=== PATIENT | female | born 1975 | race African-American/Black ===

== ENCOUNTER → 2016-10-08 | Outpatient (CLI) | payer BC ==
[~2016-10-08] MED LIST: ABILIFY10 MG PO; AMBIEN PO; AMOXICILLIN PO; ATIVAN PO; BACTRIM DS TABL1 TA1 PO; BACTRIM DS TABL1 TA2 PO; CIPRO250 MG PO; FLEXERIL PO; FLEXERIL10 MG PO; HYDROCODON-ACE1 EAC5 PO; LISINOPRIL; LISINOPRIL-HCTZ1 T16 PO; LISINOPRIL-HCTZ1 T18 PO; LORTAB 10-5001 EACH PO; LORTAB 7.5-5001 TAB PO; MOBIC PO; NEURONTIN300 MG PO; NORVASC PO; ORUDIS75 M1 PO; PHENERGAN25 M1 PO; PHENTERMINE; PYRIDIUM PO; ROBAXIN 750750 MG PO; TOPAMAX PO; TRAZODONE PO; TYLOX 5-500 CA1 EACH PO; TYLOX1 CAP 5/50 PO; VISTARIL PO; ZOLOFT100 MG PO
== END | disposition home or self-care (01) ==
LOC: CBAR 13:51
DX: Z01.818 Encounter for other preprocedural examination (principal); E66.01 Morbid (severe) obesity due to excess calories
CPT/HCPCS: G0463